=== PATIENT | male | born 1950 | race Caucasian/White ===

== ENCOUNTER 2020-10-30 15:30 | Observation (INO) | payer MEDICARE ==
[~2020-10-30] VITALS: Ht 180.3 cm; Wt 75.0 kg
[2020-10-30 17:13] LABS: BASOPHILS # (AUTO) 0.1 X10'3 (0-0.2); BASOPHILS % (AUTO) 0.5 % (0-1); EOSINOPHILS # (AUTO) 0.9 X10'3 (0-0.9); EOSINOPHILS % (AUTO) 6.5 % (0-6); HEMATOCRIT 41.8 % (42.0-52.0); HEMOGLOBIN 14.1 g/dl (14.0-17.9); LYMPHOCYTES # (AUTO) 1.2 X10'3 (1.1-4.8); LYMPHOCYTES % (AUTO) 9.3 % (21-51); MEAN CORPUSCULAR HEMOGLOBIN 29.7 PG (27.0-31.0); MEAN CORPUSCULAR HGB CONC 33.8 g/dL (33.0-36.5); MEAN PLATELET VOLUME 6.7 FL (7.4-10.4); MONOCYTES # (AUTO) 1.1 X10'3 (0-0.9); MONOCYTES % (AUTO) 8.1 % (2-12); NEUTROPHILS # (AUTO) 10.1 X10'3 (1.8-7.7); NEUTROPHILS % (AUTO) 75.6 % (42-75); PLATELET COUNT 454 X10'3 (140-440); RED BLOOD COUNT 4.75 X10'6 (4.70-6.10); RED CELL DISTRIBUTION WIDTH 13.8 % (11.5-14.5); WHITE BLOOD COUNT 13.3 X10'3 (4.5-11.0)
[2020-10-30 17:18] LABS: ALANINE AMINOTRANSFERASE 19 U/L (12-78); ALBUMIN 3.1 G/DL (3.4-5.0); ALBUMIN/GLOBULIN RATIO 0.6 (1.1-1.5); ALKALINE PHOSPHATASE 105 IU/L (46-116); ANION GAP 9 (8-16); ASPARTATE AMINO TRANSFERASE 36 U/L (10-37); BILIRUBIN,TOTAL 0.8 MG/DL (0.1-1.0); BLOOD UREA NITROGEN 12 MG/DL (7-18); BUN/CREATININE RATIO 15.2 (5.4-32.0); CALCIUM 9.3 MG/DL (8.5-10.1); CHLORIDE 97 MMOL/L (99-107); CREATININE 0.79 MG/DL (0.60-1.10); ETHANOL < 0.010 GM/DL (0.0-0.010); GLUCOSE 116 MG/DL (70-104); POTASSIUM 3.8 MMOL/L (3.5-5.1); SODIUM 135 MMOL/L (135-145); TOTAL CARBON DIOXIDE 29.3 MMOL/L (24-32); TOTAL PROTEIN 7.9 G/DL (6.4-8.2); eGFR > 90 ML/MIN
[2020-10-30] MEDS ORDERED: normal saline 1000ml 1,000 ML IV ONE (17:45)
--- NOTE | 2020-10-30 20:08 | NUR ---
Friend: Alli [place] [phone]. Dr. Cordoba requested phone to patient room so patient make speak to his friend. Patient speaking to his friend explaining that he is in the hospital for "cancer treatment".
[2020-10-30] MEDS ORDERED: magnesium 4gm in 100ml NS 100 ML IV PRN (20:10)
[2020-10-30] MEDS ORDERED: morphine 2 MG/ML inj. syringe IV PRN ×2 (20:10)
[2020-10-30] MEDS ORDERED: potassium Cl 40MEQ/1/2NS 520ml 520 ML IV PRN ×2 (20:10)
[2020-10-30] MEDS ORDERED: magnesium 2GM in 50ml NS 50 ML IV PRN (20:10)
[2020-10-30] MEDS ORDERED: potassium Cl 20 mEq SR tablet PO PRN ×2 (20:10)
[2020-10-30] MEDS ORDERED: acetaminophen 325mg tablet PO PRN ×2 (20:10)
[2020-10-30] MEDS ORDERED: magnesium Cl slow-release 64mg tablet PO PRN (20:10)
[2020-10-30] MEDS ORDERED: ondansetron/PF 4mg/2ml inj IV PRN (20:10)
[2020-10-30] MEDS ORDERED: HYDROcodone/acetaminophen 5mg/325mg tablet PO PRN (20:10)
--- NOTE | 2020-10-30 20:35 | NUR ---
Went to put "DNR" band on patient per MD Oakley admit orders and confirmed these wishes with patient who denies that he wants DNR and wants full code. MD Oakley paged, awaiting return call.
[2020-10-30 20:42] LABS: CLARITY,URINE CLEAR (Clear); COLOR,URINE YELLOW (Yellow); GLUCOSE, URINE NEGATIVE (Neg); KETONES,URINE 15 mg/dl (Neg); LEUKOCYTE ESTERASE ,URINE NEGATIVE (Neg); NITRITES, URINE NEGATIVE (Neg); OCCULT BLOOD,URINE MODERATE (Neg); PROTEIN,URINE TRACE mg/dl (Neg); URINE AMPHETAMINE SCREEN NEGATIVE (Neg); URINE BARBITUATE SCREEN NEGATIVE (Neg); URINE BENZODIAZEPINES SCREEN NEGATIVE (Neg); URINE CANNABINOID SCREEN POSITIVE (Neg); URINE COCAINE SCREEN NEGATIVE (Neg); URINE METHADONE SCREEN NEGATIVE (Neg); URINE OPIATE SCREEN POSITIVE (Neg); URINE PHENCYCLIDINE SCREEN NEGATIVE (Neg)
[2020-10-30 20:43] LABS: UA COLLECTION TYPE CLN CATCH MIDSTREAM
[2020-10-30 21:00] LABS: BACTERIA,URINE NONE SEEN /HPF (Neg); MUCUS STRANDS MANY /LPF (Neg); SQUAMOUS EPITHELIAL CELL,UR FEW /LPF (FEW); WBC,URINE 0-4 /HPF (0-4)
[2020-10-30] MEDS ORDERED: temazepam 15mg capsule PO PRN (21:00)
[2020-10-30 21:02] LABS: RBC,URINE 50-100 /HPF (0-2)
[2020-10-30] MEDS ORDERED: CARV-49 PO (22:43)
[2020-10-30] MEDS ORDERED: HYDR-3972 PO (22:44)
[2020-10-30 23:34] VITALS: BP 123/65
[2020-10-31] MEDS: normal saline 1000ml 1,000 ML IV SCH ×2 (00:16→19:37)
[2020-10-31] MEDS: heparin, porcine 5000 units/ml vial SQ SCH ×3 (00:17→16:41)
[2020-10-31 02:00] VITALS: BP_SYST 123; BP_SYST 133; BP_DIAS 65; BP_DIAS 75
[2020-10-31 05:58] LABS: BASOPHILS # (AUTO) 0.1 X10'3 (0-0.2); BASOPHILS % (AUTO) 0.7 % (0-1); EOSINOPHILS # (AUTO) 0.9 X10'3 (0-0.9); EOSINOPHILS % (AUTO) 7.9 % (0-6); HEMATOCRIT 40.1 % (42.0-52.0); HEMOGLOBIN 13.6 g/dl (14.0-17.9); LYMPHOCYTES # (AUTO) 1.2 X10'3 (1.1-4.8); LYMPHOCYTES % (AUTO) 10.8 % (21-51); MEAN CORPUSCULAR HEMOGLOBIN 30.1 PG (27.0-31.0); MEAN CORPUSCULAR HGB CONC 33.8 g/dL (33.0-36.5); MEAN CORPUSCULAR VOLUME 88.9 FL (78-98); MEAN PLATELET VOLUME 6.9 FL (7.4-10.4); MONOCYTES % (AUTO) 9.2 % (2-12); NEUTROPHILS # (AUTO) 8.1 X10'3 (1.8-7.7); NEUTROPHILS % (AUTO) 71.4 % (42-75); PLATELET COUNT 418 X10'3 (140-440); RED BLOOD COUNT 4.51 X10'6 (4.70-6.10); RED CELL DISTRIBUTION WIDTH 13.9 % (11.5-14.5); WHITE BLOOD COUNT 11.4 X10'3 (4.5-11.0)
[2020-10-31 06:00] VITALS: BP 135/79
--- NOTE | 2020-10-31 06:10 | NUR ---
received report from aquiles andrews
[2020-10-31 06:13] LABS: ALANINE AMINOTRANSFERASE 18 U/L (12-78); ALBUMIN 2.8 G/DL (3.4-5.0); ALBUMIN/GLOBULIN RATIO 0.6 (1.1-1.5); ALKALINE PHOSPHATASE 93 IU/L (46-116); ANION GAP 10 (8-16); ASPARTATE AMINO TRANSFERASE 33 U/L (10-37); BILIRUBIN,TOTAL 0.7 MG/DL (0.1-1.0); BLOOD UREA NITROGEN 9 MG/DL (7-18); BUN/CREATININE RATIO 14.1 (5.4-32.0); CALCIUM 9.1 MG/DL (8.5-10.1); CHLORIDE 101 MMOL/L (99-107); CREATININE 0.64 MG/DL (0.60-1.10); GLUCOSE 109 MG/DL (70-104); MAGNESIUM 1.9 MG/DL (1.5-2.4); POTASSIUM 3.8 MMOL/L (3.5-5.1); SODIUM 139 MMOL/L (135-145); TOTAL PROTEIN 7.2 G/DL (6.4-8.2); eGFR > 90 ML/MIN
--- NOTE | 2020-10-31 06:31 | NUR ---
Report given to aquiles Leong.
[2020-10-31] MEDS: K and/or MAG REPLACEMENT MC SCH ×2 (07:03→20:00)
[2020-10-31] MEDS: methylPREDNISolone sod succ 125mg/2ml vial IV SCH ×2 (07:07→19:29)
[2020-10-31] MEDS: nicotine 14mg patch - 24hr TD SCH (07:13)
[2020-10-31] MEDS: carvedilol 6.25mg tablet PO SCH ×2 (07:16→19:29)
[2020-10-31] MEDS: docusate sod 100mg capsule PO SCH ×2 (07:16→19:29)
[2020-10-31] MEDS: HYDROcodone/acetaminophen 10/325mg tab PO PRN ×2 (07:19→16:44)
--- NOTE | 2020-10-31 07:23 | NUR ---
scanner on computer not scanning medications into [employer] at this time, continue to check all meds prior to admin
[2020-10-31 10:00] VITALS: BP 116/68
[2020-10-31] MEDS ORDERED: DEC1T PO (12:19)
[2020-10-31 14:00] VITALS: BP 115/66
--- NOTE | 2020-10-31 16:22 | NUR ---
brother called from [place] and told me that he would be unable to pick patient up this evening, brother told me that he would be able to pick pt up tomorrow morning, i sent a page to hospitalist letting him know that pt needs to stay another night til the ride shows up, no new orders at this time, continue to monitor
--- NOTE | 2020-10-31 16:46 | NUR ---
SCANNER ON COMPUTER NOT SCANNING MEDS INTO [employer], CHECKED ALL MEDS PRIOR TO ADMIN
--- NOTE | 2020-10-31 18:10 | NUR ---
gave report to aquiles wray
[2020-10-31 18:17] VITALS: BP 128/82
[2020-10-31 22:00] VITALS: BP 103/69
[2020-11-01] MEDS: heparin, porcine 5000 units/ml vial SQ SCH ×2 (00:40→08:17)
[2020-11-01] MEDS: normal saline 1000ml 1,000 ML IV SCH (00:46)
[2020-11-01 06:00] VITALS: BP 117/62
[2020-11-01 06:04] LABS: BASOPHILS % (AUTO) 0.1 % (0-1); EOSINOPHILS % (AUTO) 0 % (0-6); HEMOGLOBIN 13.1 g/dl (14.0-17.9); LYMPHOCYTES # (AUTO) 0.9 X10'3 (1.1-4.8); LYMPHOCYTES % (AUTO) 6.9 % (21-51); MEAN CORPUSCULAR HEMOGLOBIN 29.2 PG (27.0-31.0); MEAN CORPUSCULAR HGB CONC 32.8 g/dL (33.0-36.5); MEAN CORPUSCULAR VOLUME 89.1 FL (78-98); MONOCYTES # (AUTO) 0.7 X10'3 (0-0.9); NEUTROPHILS # (AUTO) 11.8 X10'3 (1.8-7.7); PLATELET COUNT 416 X10'3 (140-440); RED BLOOD COUNT 4.49 X10'6 (4.70-6.10); RED CELL DISTRIBUTION WIDTH 13.9 % (11.5-14.5); WHITE BLOOD COUNT 13.4 X10'3 (4.5-11.0)
--- NOTE | 2020-11-01 06:23 | NUR ---
reported to days. noted pt anticipates discharge home. educated on decadron after discharge
[2020-11-01 06:30] LABS: ALANINE AMINOTRANSFERASE 19 U/L (12-78); ALBUMIN 2.6 G/DL (3.4-5.0); ALBUMIN/GLOBULIN RATIO 0.6 (1.1-1.5); ALKALINE PHOSPHATASE 86 IU/L (46-116); ANION GAP 8 (8-16); ASPARTATE AMINO TRANSFERASE 25 U/L (10-37); BILIRUBIN,TOTAL 0.2 MG/DL (0.1-1.0); BLOOD UREA NITROGEN 19 MG/DL (7-18); BUN/CREATININE RATIO 24.1 (5.4-32.0); CHLORIDE 103 MMOL/L (99-107); CREATININE 0.79 MG/DL (0.60-1.10); GLUCOSE 137 MG/DL (70-104); MAGNESIUM 2.1 MG/DL (1.5-2.4); POTASSIUM 4.4 MMOL/L (3.5-5.1); SODIUM 139 MMOL/L (135-145); TOTAL CARBON DIOXIDE 28.2 MMOL/L (24-32); TOTAL PROTEIN 6.8 G/DL (6.4-8.2); eGFR > 90 ML/MIN
--- NOTE | 2020-11-01 06:42 | NUR ---
Patient in room [facility]. I have received report from LUIS MANUEL JETT and had the opportunity to ask questions and assume patient care.
--- NOTE | 2020-11-01 07:00 | NUR ---
Pt ambulates ad tito
[2020-11-01] MEDS ORDERED: HYDROmorphone inj. 0.5 MG/0.5 ML DISP.SYRIN IV PRN (07:30)
[2020-11-01] MEDS ORDERED: oxyCODONE/APAP 10/325mg tablet PO PRN ×2 (07:30)
[2020-11-01] MEDS: nicotine 14mg patch - 24hr TD SCH (08:00)
[2020-11-01] MEDS: docusate sod 100mg capsule PO SCH (08:17)
[2020-11-01] MEDS: methylPREDNISolone sod succ 125mg/2ml vial IV SCH (08:17)
[2020-11-01] MEDS: carvedilol 6.25mg tablet PO SCH (08:18)
[2020-11-01 10:00] VITALS: BP 119/60
[2020-11-01] MEDS ORDERED: DEC1T PO (10:49)
--- NOTE | 2020-11-01 11:25 | NUR ---
D/C instructions given to pt and pt's brother, questions answered. Belongings gathered by nurse and sent with pt. IV d/c'd, cannula intact, no complications. D/C'd pt in stable condition to home in [place] with brother in private vehicle. Pt left floor at 1110. Addendum: 11/01/20 at 1135 by Aimee Vallejo RN Pt d/c'd with all belongings, including clothes, wallet, cell phone, money, and narcotics, which were stored in pharmacy accompanied by brother and friend to private vehicle to go home and follow up with PCP and hospice.
--- NOTE | 2020-11-02 10:17 | NUR ---
CASE MANAGEMENT DISCHARGE FOLLOW UP: No contact number for pt or his brother, per d/c notes, pt's brother will help pt connect with his PMD and establish hospice care for pt. No f/u needed at this time.
== END 2020-11-01 11:15 | disposition home or self-care (01) ==
LOC: ER 15:31 → ED HOLD 20:10 → ORTHO 4S 23:35
PROVIDERS: ADMIT Internal Medicine; ATTEND Family Medicine
DX: C18.9 Malignant neoplasm of colon, unspecified (principal); C79.31 Secondary malignant neoplasm of brain; C78.00 Secondary malignant neoplasm of unspecified lung; C79.89 Secondary malignant neoplasm of other specified sites; G93.40 Encephalopathy, unspecified; R41.82 Altered mental status, unspecified; I25.10 Atherosclerotic heart disease of native coronary artery without angina pectoris; I10 Essential (primary) hypertension; D50.9 Iron deficiency anemia, unspecified; D72.829 Elevated white blood cell count, unspecified; F12.90 Cannabis use, unspecified, uncomplicated; F17.210 Nicotine dependence, cigarettes, uncomplicated; Z51.5 Encounter for palliative care; Z66 Do not resuscitate; Z95.0 Presence of cardiac pacemaker; Z79.899 Other long term (current) drug therapy
CPT/HCPCS: 36415; 70450; 71045; 74176; 80053; 80305; 80320; 81001; 82140; 82948; 83605; 83735; 85025; 87040; 87081; 93005; 96361; 96372; 96374; 96375; 96376; 97116; 97161; 97530; 99285; G0378; J1170; J1644; J2270; J2405; J2930; J7030